=== PATIENT | female | born 1955 | race American Indian/Alaskan Native ===

== ENCOUNTER 2017-06-01 16:21 | Emergency (ER) | payer MEDICARE ==
[2017-06-01 16:40] VITALS: BMI 26.6
[2017-06-01 16:49] VITALS: BP 138/85; PULSE 81; RESP 18; TEMP 98.5; O2SAT 97
--- NOTE | 2017-06-01 17:10 | C.PDOC ---
History Of Present Illness 61 y/o female presents to ED escorted by investigators from Drug court. As per investigators patient missed court date and needs to be medically cleared to be incarcerated. At ED patient states " My son 1 month ago" and complaints of depression and leg swell bilaterally "for couple of days". No other physical complaints at this time. Time Seen by Provider: 06/01/17 17:02 Chief Complaint (Nursing): Medical Clearance History Per: Patient, Other (Investigators) History/Exam Limitations: no limitations Onset/Duration Of Symptoms: Days Current Symptoms Are (Timing): Still Present Past Medical History Reviewed: Historical Data, Nursing Documentation, Vital Signs Vital Signs: Last Vital Signs Temp 98.5 F 06/01/17 16:40 Pulse 81 06/01/17 16:40 Resp 18 06/01/17 16:40 BP 138/85 06/01/17 16:40 Pulse Ox 97 06/01/17 17:31 - Medical History PMH: No Chronic Diseases Surgical History: No Surg Hx - [facility] Procedures INJECT/INFUSE NEC (02/24/12) Family History: States: No Known Family Hx - Social History Hx Tobacco Use: Yes Hx Alcohol Use: Yes Hx Substance Use: Yes - Immunization History Hx Tetanus Toxoid Vaccination: No Hx Influenza Vaccination: No Hx Pneumococcal Vaccination: No Review Of Systems Constitutional: Negative for: Fever, Chills Cardiovascular: Negative for: Chest Pain Respiratory: Negative for: Shortness of Breath Musculoskeletal: Positive for: Leg Pain (Swelling) Neurological: Negative for: Weakness, Numbness Psych: Positive for: Depression. Negative for: Suicidal ideation Physical Exam - Physical Exam Appears: Non-toxic, Other (Emotional, Actively crying) Skin: Warm, Dry, No Rash Head: Atraumatic, Normacephalic Eye(s): bilateral: Normal Inspection Oral Mucosa: Moist Neck: Normal ROM, Supple Cardiovascular: Rhythm Regular, No Friction Rub, No Murmur Respiratory: Normal Breath Sounds, No Rales, No Rhonchi, No Wheezing Gastrointestinal/Abdominal: Soft, No Tenderness, No Guarding, No Rebound Extremity: No Tenderness, Pedal Edema (Trace bilaterally), No Deformity, No Swelling Pulses: Left Dorsalis Pedis: Normal, Right Dorsalis Pedis: Normal Neurological/Psych: Oriented x3, Normal Speech, Normal Cognition, Normal Motor Gait: Steady ED Course And Treatment O2 Sat by Pulse Oximetry: 97 (ra) Pulse Ox Interpretation: Normal Medical Decision Making Medical Decision Making: The patient was evaluated by the crisis team and patient was cleared by psych. Disposition - Disposition Referrals: Homer Grande MD [Staff Provider] - Disposition: HOME/ ROUTINE Disposition Time: 17:15 Condition: GOOD Additional Instructions: Patient is medically and psychiatrically cleared for incarceration. Instructions: Dealing With , Adult, Polysubstance Abuse Forms: [facility] (Greenlandic) - Clinical Impression Clinical Impression: Narcotic abuse - PA / SAP BUSINESS ANALYST / Resident Statement MD/DO has reviewed & agrees with the documentation as recorded. - Scribe Statement The provider has reviewed the documentation as recorded by the Eduardoibiban Case All medical record entries made by the Eduardoibiban were at my direction and personally dictated by me. I have reviewed the chart and agree that the record accurately reflects my personal performance of the history, physical exam, medical decision making, and the department course for this patient. I have also personally directed, reviewed, and agree with the discharge instructions and disposition.
== END 2017-06-01 17:38 | disposition home or self-care (01) ==
LOC: C.ER 16:21
DX: F19.10 Other psychoactive substance abuse, uncomplicated (principal); Z65.3 Problems related to other legal circumstances